=== PATIENT | female | born 1975 | race Caucasian/White ===

== ENCOUNTER 2021-11-20 12:11 | Outpatient (CLI) | payer OTHER, SELFPAY ==
[2021-11-20 21:36] LABS: Albumin* 4.6 g/dL (3.3-5.0); Chloride* 101 mmol/L (96-114); Potassium* 4.8 mmol/L (3.6-5.1); Sodium* 136 mmol/L (135-149)
[2021-11-20 21:39] LABS: Alanine Aminotransferase* 16 U/L (4-35); Alkaline Phosphatase* 66 U/L (40-150); Aspartate Amino Transferase* 27 U/L (12-35); Bilirubin Total* 0.8 mg/dL (0.1-1.5); Blood Urea Nitrogen* 19 mg/dL (5-24); Carbon Dioxide* 27 mmol/L (20-32); Creatinine* 0.8 mg/dL (0.5-1.5); Estimated Glomerular Filt Rate 92 ml/min; Glucose* 100 mg/dL (60-115); Total Protein* 7.5 g/dL (6.0-8.3)
[2021-11-22 19:44] LABS: Follicle Stimulating Hormone 7.7 IU/L
== END 2021-11-20 12:12 | disposition home or self-care (01) ==
PROVIDERS: PCP Physician Assistant Medical; Visit Provider Physician Assistant Medical
DX: R63.5 Abnormal weight gain (principal); R35.0 Frequency of micturition
CPT/HCPCS: 80053; 83001; 84443; 87086

== ENCOUNTER 2022-11-18 12:00 | Outpatient (CLI) | payer OTHER, SELFPAY | END 2022-11-18 12:01 | disposition home or self-care (01) | PROVIDERS: PCP Physician Assistant Medical; Visit Provider Physician Assistant Medical | DX: R63.5 Abnormal weight gain (principal); R06.00 Dyspnea, unspecified | CPT/HCPCS: 83001; 83880; 84439; 84443; 84481; 86376 ==

== ENCOUNTER 2022-12-08 14:00 | Outpatient (CLI) | payer OTHER, SELFPAY ==
[2022-12-08 15:18] VITALS: BP 110/74; PULSE 75; RESP 16
--- NOTE | 2022-12-08 15:25 | ED_ITS ---
HPI - Wound/Laceration General Date Seen: 12/08/22 Related Data Home Medications Medication Instructions Recorded Confirmed levonorgestrel 21 mcg/24 hours (8 1 intrauterine ONCE 11/20/21 12/08/22 yrs) 52 mg intrauterine device Allergies Allergy/AdvReac Type Severity Reaction Status Date / Time Sulfa (Sulfonamide Allergy Mild Fever Verified 12/08/22 10:35 Antibiotics) environmental Allergy Intermediate Congested Uncoded 12/08/22 10:35 PFSH PFSH Medical History (Updated 12/08/22 @ 11:03 by Ginna Salcedo CNM) Asthma (08/2020) ?J45.909 - Unspecified asthma, uncomplicated (ICD-10) History of vaginal delivery History of seizure ?Z87.898 - Personal history of other specified conditions (ICD-10) Surgical History History of tonsillectomy and adenoidectomy ?Z90.89 - Acquired absence of other organs (ICD-10) History of loop electrical excision procedure (LEEP) (2010) ?Z98.890 - Other specified postprocedural states (ICD-10) History of laparoscopy (2010) ?Z98.890 - Other specified postprocedural states (ICD-10) History of dilation and curettage (2007) ?Z98.890 - Other specified postprocedural states (ICD-10) History of bunionectomy of both great toes ?Z98.890 - Other specified postprocedural states (ICD-10) Family History Mother Breast cancer, Onset Age: 65 Father Stroke High cholesterol High blood pressure Family/Other Depression Substance abuse Sister Mental health problem Social History Narrative: , history of marijuana use, nonsmoker, occasional alcohol consumption What is your current living situation?: I presently have a place to live Problems where you live: no known problems In the past 12 months, utilities in danger of being shut off: no In past 12 months, lack of transportation kept you from medical appts, meetings, work, or getting things needed for daily living: no In the past 12 mos, have been you worried that your food would run out before you had money to buy more?: never true In the past 12 mos, the food you bought just didn't last and you didn't have money to buy more?: never true Smoking Status: Never smoker How often does anyone, including family, friends and others, physically hurt you : never How often does anyone, including family, friends and others, insult or talk down to you: never How often does anyone, including family, friends and others, threaten you with harm: never How often does anyone, including family, friends and others, scream or curse at you: never Little interest or pleasure in doing things: several days Feeling down, depressed, or hopeless: not at all Exam Const: Vital Signs, click to edit/add: Vital Signs - 24 hr 12/08/22 15:18 Pulse Rate [Pulse Oximeter] 75 Respiratory Rate 16 Blood Pressure [Le ft Arm] 110/74 Oxygen Delivery Me thod Room Air Course Vital Signs Vital signs: Initial Vital Signs Pulse Rate 75 12/08/22 15:18 Respiratory Rate 16 12/08/22 15:18 Respiratory Effort Normal, Spontaneous, Non-Labored 12/08/22 15:18 Respiratory Depth Normal 12/08/22 15:18 Respiratory Pattern Normal 12/08/22 15:18 Blood Pressure 110/74 12/08/22 15:18 Blood Pressure Position Supine 12/08/22 15:18 Oxygen Delivery Method Room Air 12/08/22 15:18 Vital Signs Pulse Rate 75 12/08/22 15:18 Respiratory Rate 16 12/08/22 15:18 Blood Pressure 110/74 12/08/22 15:18 Oxygen Delivery Method Room Air 12/08/22 15:18 Pulse Rate 75 12/08/22 15:18 Respiratory Rate 16 12/08/22 15:18 Blood Pressure 110/74 12/08/22 15:18 Oxygen Delivery Method Room Air 12/08/22 15:18 Discharge Plan Discharge Primary Care Provider: Rkuhsana Mcbride Activity Restrictions/Additional Instructions: Patient verbalized understanding of reviewed discharge instructions. Discharge Medications: No Action levonorgestrel 20 mcg/24 hours (8 yrs) 52 mg intrauterine device 1 intrauterine ONCE
--- NOTE | 2022-12-08 15:31 | W.PM.STED ---
Stress Test Note Date Date of test: 12/08/22 Providers Primary care provider: Rukhsana Mcbride Stress test physician: Ric Dave Stress Test Note Stress test ordered: Stress Echo Indication for test: Dyspnea Results discussion: Patient is a very nice 47-year-old female presents for the above test after discussion the risks benefits side effects, and review of the cardiac stress test medical history form, she would like to proceed pretest EKG. EKG shows normal sinus rhythm, with a ventricular rate of 62 blood pressure 124 on 86. No acute ST wave changes are noted. Normal standard Asa protocol is done over a time course of 11 minutes 41 seconds, medical equivalent is 12.1 Mets, issue heart rate was 100 10% of the predicted. During this test, she has no chest pain shortness of breath test is terminated because of fulfillment of protocol, there is no acute ST wave changes suggestive of ischemia. No dysrhythmias Impression: Negative electrographic portion of a stress echo, she responded clinically she had at good conditioning Follow up suggested: Patient will be sent home, Cardiology will review echo portion, clinical correlation with this will be needed, clinical follow-up as needed.
== END 2022-12-08 14:01 | disposition home or self-care (01) ==
LOC: STRESS 14:00
PROVIDERS: PCP Physician Assistant Medical; Visit Provider Family Medicine
DX: R06.00 Dyspnea, unspecified (principal); R07.89 Other chest pain
CPT/HCPCS: 93016; 93325; 93351

== ENCOUNTER 2023-01-25 12:36 | Outpatient (CLI) | payer OTHER, SELFPAY ==
--- NOTE | 2023-01-25 13:00 | CRLHL7_ITS ---
For Patients: As a result of the Century Cures Act, medical imaging exams and procedure reports are released immediately into your electronic medical record. You may view this report before your referring provider. If you have questions, please contact your health care provider. HISTORY: Liver lesion. COMPARISON: CT angiogram of the chest, 01/05/2023. Technique: MRI of the abdomen without and with intravenous gadolinium. Three plane localizer, 3 plane SSFP,/coronal T2 weighted haste, axial T1 weighted in and out of phase, axial STIR, axial diffusion-weighted imaging and ADC map, and pre and post contrast axial and coronal T1 weighted fat-suppressed VIBE pulse sequences were obtained. 15 cc of IV dotarem. Findings: The biliary tree is normal in caliber. The liver morphology is non cirrhotic. There are no inflammatory changes adjacent to the gallbladder. The common bile duct measures 4 millimeters. The nephrograms are symmetric. There is no solid renal mass, hydronephrosis, or perinephric fluid. The spleen size is normal. There is no solid renal mass. No perinephric fluid collection. No abdominal lymphadenopathy. No abdominal aortic aneurysm. The visceral artery branches are patent. No adrenal mass. No pleural or pericardial effusion. The lesion described previously on the CTA from 01/05/2023 measures 9 millimeters in transverse dimension. See series 15, image 27. The lesion is hyperintense on post-contrast images during the arterial, portal venous, and equilibrium phases. Lesion is only minimally hyperintense on T2 weighted imaging. See series 9, image 15. There is no central scar. No signal dropout on chemical shift imaging. No findings to indicate intra voxel fat. Impression: 1. The lesion in the left hepatic lobe has nonspecific imaging characteristics. 2. The differential diagnosis includes a region of focal nodular hyperplasia, or hepatic adenoma. Benign etiology is strongly favored. The liver morphology is non cirrhotic. 3. Imaging characteristics are not typical for hepatic cavernous hemangioma or arterioportal shunt. 4. MRI of the abdomen is suggested in 6 months to begin documentation of stability. Dictated by César Alvarez MD @ 01/25/2023 3:39:03 PM (Electronically Signed)
== END 2023-01-25 12:37 | disposition home or self-care (01) ==
LOC: MRI 12:37
PROVIDERS: PCP Physician Assistant Medical; Visit Provider Physician Assistant Medical
DX: K76.9 Liver disease, unspecified (principal)
CPT/HCPCS: 74183; A9575

== ENCOUNTER 2023-07-22 06:58 | Outpatient (CLI) | payer OTHER, SELFPAY ==
--- NOTE | 2023-07-22 07:15 | CRLHL7_ITS ---
For Patients: As a result of the Cures Act, medical imaging exams and procedure reports are released immediately into your electronic medical record. You may view this report before your referring provider. If you have questions, please contact your health care provider. INDICATION: Liver lesion; evaluate for stability. Comparison : MRI the liver with intravenous contrast January 25, 2023. TECHNIQUE: Precontrast T1 and T2 weighted imaging; T2 haste imaging; diffusion-weighted imaging; in- and out of phase imaging; postcontrast imaging including subtraction. Findings : A 1.2 centimeter lesion identified in segment 3 of the liver with minimal increased signal on the precontrast T2 haste imaging and slightly lower signal on the precontrast T1 weighted imaging. Minimal enhancement postcontrast administration persist into the venous phase. No central scar. Non cirrhotic liver morphology. No other focal hepatic or splenic pathology. No pancreatic pathology. Gallbladder is unremarkable. No adrenal pathology. Kidneys are unremarkable. No retroperitoneal lymphadenopathy. No evidence of abdominal ascites. No interval change when compared to January 2023. Impression : 1. 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 Dictated by Gabriella Posey MD @ 07/22/2023 11:53:28 AM (Electronically Signed)
== END 2023-07-22 06:59 | disposition home or self-care (01) ==
LOC: MRI 06:58
PROVIDERS: PCP Physician Assistant Medical; Visit Provider Physician Assistant Medical
DX: K76.9 Liver disease, unspecified (principal)
CPT/HCPCS: 74183; A9575

== ENCOUNTER 2024-07-20 09:06 | Outpatient (CLI) | payer OTHER, SELFPAY ==
[2024-07-25 16:46] LABS: HPV Source Cervix; HPV, High Risk by TMA Not Detected
== END 2024-07-20 09:07 | disposition home or self-care (01) ==
PROVIDERS: PCP Physician Assistant Medical; Visit Provider Registered Nurse
DX: Z12.4 Encounter for screening for malignant neoplasm of cervix (principal); Z87.42 Personal history of other diseases of the female genital tract
CPT/HCPCS: 87624; 87625; 88141; 88142

== ENCOUNTER 2024-09-07 08:12 | Outpatient (CLI) | payer OTHER, SELFPAY ==
--- NOTE | 2024-09-07 08:15 | CRLHL7_ITS ---
For Patients: As a result of the Century Cures Act, medical imaging exams and procedure reports are released immediately into your electronic medical record. You may view this report before your referring provider. If you have questions, please contact your health care provider. INDICATION: Liver disease, follow-up liver lesion TECHNIQUE: 1.5 T MRI of the abdomen performed with pre and postcontrast T1 weighted imaging; T2 weighted imaging; in and out of phase imaging; diffusion weighted imaging. 20 mL Dotarem IV COMPARISON: MR abdomen 01/25/2023 FINDINGS: Lungs: New right lower lobe subpleural reticulation and interstitial thickening, for example on series 8, image 4. No pleural or pericardial effusion. Liver: Homogeneous liver parenchyma. Late arterial phase contrast bolus timing limits direct comparison to prior MRI. On portal venous imaging, there is a subtle hyperenhancing to nearly isoenhancing lesion in the left hepatic lobe that is difficult to accurately measure, although possibly measures 1.1 cm (), stable from on prior MRI. Scattered subcentimeter hypointense foci are too small to accurately characterize, although likely benign cysts Biliary tree and gallbladder: No intra or extrahepatic biliary dilation. Fluid-filled gallbladder without stones. Spleen: Unremarkable Pancreas: Normal pancreatic parenchyma. No pancreatic masses. No pancreatic duct dilation. Adrenal glands: Unremarkable. Kidneys and ureters: No renal masses or hydronephrosis. GI tract: No evidence of obstruction or inflammation. Vasculature: The IVC and aorta are patent. No abdominal aortic aneurysm. Lymph nodes: No lymphadenopathy. Abdominal wall: Unremarkable Bones: Bone marrow signal is within normal limits IMPRESSION: 1. Late arterial phase contrast bolus timing limits direct comparison of the left hepatic lesion to prior imaging, however this appears roughly stable in size and may represent focal nodular hyperplasia. Stability compared to prior imaging is reassuring for benign etiology, however 6 month additional follow-up MRI could be considered given the suboptimal comparison on today`s exam. 2. New right lower pulmonary lobe subpleural reticulation and interstitial thickening, not well evaluated on this exam although could suggest underlying fibrosis or edema. Consider chest CT for further evaluation. Dictated by Amaris Owens MD @ 09/09/2024 4:23:41 PM (Electronically Signed)
== END 2024-09-07 08:13 | disposition home or self-care (01) ==
LOC: MRI 08:12
PROVIDERS: PCP Physician Assistant Medical; Visit Provider Physician Assistant Medical
DX: K76.9 Liver disease, unspecified (principal); R91.8 Other nonspecific abnormal finding of lung field
CPT/HCPCS: 74183; A9575

== ENCOUNTER 2024-10-31 08:33 | Outpatient (CLI) | payer OTHER, SELFPAY ==
--- NOTE | 2024-10-31 09:00 | CRLHL7_ITS ---
For Patients: As a result of the Century Cures Act, medical imaging exams and procedure reports are released immediately into your electronic medical record. You may view this report before your referring provider. If you have questions, please contact your health care provider. INDICATION: Pulmonary nodule. Follow up. TECHNIQUE: Volumetric helical scanning of the thorax was performed without IV contrast material. Coronal and sagittal reconstructions were obtained. COMPARISON: Chest CT of 01/05/2023 FINDINGS: No new or enlarged pulmonary nodule is identified. A small cluster of calcified granulomas is demonstrated in the posterior right lower lobe on images 63-66 of series 3. The lungs are clear. There is no significant airway abnormality. No pleural effusion is demonstrated. There is no mediastinal or hilar lymphadenopathy. Calcified right hilar and mediastinal lymph nodes are demonstrated. The heart size is normal. Images of the upper abdomen are unremarkable. IMPRESSION: Healed granulomatous disease in the right chest. Otherwise negative. Please note that all CT scans at this facility use dose modulation, iterative reconstruction, and/or weight-based dosing when appropriate to reduce radiation dose to as low as reasonably achievable. Dictated by Reinier Carranza MD @ 11/01/2024 2:41:12 PM (Electronically Signed)
== END 2024-10-31 08:34 | disposition home or self-care (01) ==
LOC: CT 08:34
PROVIDERS: PCP Physician Assistant Medical; Visit Provider Physician Assistant Medical
DX: R91.1 Solitary pulmonary nodule (principal)
CPT/HCPCS: 71250